=== PATIENT | female | born 1985 | race Caucasian/White ===

== ENCOUNTER 2018-08-25 06:06 | Day surgery (SDC) | payer OTHER ==
[2018-08-25] MEDS ORDERED: GLYCOPYRROLATE 0.4 MG INJ ×2 (07:00→08:34)
[2018-08-25] MEDS ORDERED: SEVOFLURANE 15 MIN (07:00)
[2018-08-25] MEDS ORDERED: PROPOFOL 0 ML (07:17)
[2018-08-25] MEDS ORDERED: PROPOFOL 100 ML (07:32)
[2018-08-25] MEDS ORDERED: LIDOCAINE 2% (SDV) 5 ML INJ (07:33)
[2018-08-25] MEDS ORDERED: CEFAZOLIN 1 GM INJ (07:44)
[2018-08-25] MEDS ORDERED: ROCURONIUM 50 MG INJ (07:44)
[2018-08-25] MEDS ORDERED: DEXAMETHASONE 4 MG/ML 5 ML INJ (07:52)
[2018-08-25] MEDS ORDERED: ONDANSETRON 4 MG INJ (07:53)
[2018-08-25] MEDS: BUPIVACAINE 0.5%/EPI (SDV) 30 ML INJ (08:08)
[2018-08-25] MEDS ORDERED: NEOSTIGMINE 10 MG INJ (08:34)
[2018-08-25] MEDS ORDERED: LABETALOL HCL 20MG INJ IV (09:00)
[2018-08-25] MEDS ORDERED: ALBUTEROL 0.083% (NEB) 2.5 MG/3 ML AMP HHN (09:00)
[2018-08-25] MEDS ORDERED: EPHEDrine SULFATE 50 MG/5 ML SYG IV (09:00)
[2018-08-25] MEDS ORDERED: OXYCODONE/ACETAMINOPHEN (5/325) TAB PO ×2 (09:00)
[2018-08-25] MEDS ORDERED: KETOROLAC 30 MG INJ IV (09:00)
[2018-08-25] MEDS ORDERED: hydrALAzine 20 MG INJ IV (09:00)
[2018-08-25] MEDS ORDERED: HYDROmorphONE 1 MG/5 ML IV SYRINGE IV ×2 (09:00)
[2018-08-25] MEDS ORDERED: FENTAnyl 50 MCG/ML VIAL IV ×3 (09:00)
[2018-08-25] MEDS ORDERED: DIPHENHYDRAMINE 50 MG INJ IV (09:00)
[2018-08-25] MEDS ORDERED: METOCLOPRAMIDE 10 MG INJ IV (09:00)
[2018-08-25] MEDS ORDERED: MEPERIDINE 25 MG INJ IV (09:00)
[2018-08-25] MEDS ORDERED: ONDANSETRON 4 MG INJ IV (09:00)
[2018-08-25] MEDS: HYDROmorphONE 1 MG/5 ML IV SYRINGE IV (09:39)
== END 2018-08-25 11:01 | disposition home or self-care (01) ==
LOC: SDS 06:06
DX: Z30.2 Encounter for sterilization (principal)
CPT/HCPCS: 58661; 88302